=== PATIENT | male | born 1995 | race Asian ===

== ENCOUNTER 2017-01-09 10:45 | Outpatient (RCR) | payer BC | END 2017-01-15 | disposition home or self-care (01) | LOC: PTY 10:45 | DX: M25.512 Pain in left shoulder (principal) ==

== ENCOUNTER 2017-01-30 09:00 | Outpatient (RCR) | payer BC | END 2017-02-15 | disposition home or self-care (01) | LOC: PTY 09:00 | DX: M25.512 Pain in left shoulder (principal) | CPT/HCPCS: 97110; 97140; G0283 ==